=== PATIENT | female | born 1965 | race Caucasian/White ===

== ENCOUNTER 2016-10-09 12:34 | Emergency (ER) | payer BC, OTHER ==
[~2016-10-09] VITALS: Ht 170.2 cm; Wt 158.8 kg
[2016-10-09 12:52] VITALS: BP 156/73; PULSE 86; RESP 20; TEMP 98.9; O2SAT 100
--- NOTE | 2016-10-09 12:57 | NUR ---
Pt placed to ER waiting room in stable condition. Urine specimen cup provided.
[2016-10-09] MEDS ORDERED: ONDANSETRON HCL 4 MG/2 ML VIAL IVP ONE (13:00)
[2016-10-09] MEDS ORDERED: NACL 0.9% 1,000 ML IV ONE (13:00)
[2016-10-09] MEDS ORDERED: KETOROLAC TROMETHAMINE 30 MG VIAL IVP ONE (13:00)
[2016-10-09] MEDS ORDERED: PROCHLORPERAZINE EDISYLATE 10 MG/2 ML VIAL IVP ONE (13:00)
[2016-10-09 13:24] LABS: BASOPHILS # (AUTO) 0.1 K/uL (0.0-0.2); BASOPHILS % (AUTO) 0.4 % (0.0-2.0); EOSINOPHILS # (AUTO) 0.3 K/uL (0.0-0.4); EOSINOPHILS % (AUTO) 2.2 % (0.0-4.0); HEMATOCRIT 35.4 % (36-48); LYMPHOCYTES # (AUTO) 2.2 K/uL (1.0-5.5); LYMPHOCYTES % (AUTO) 17.2 % (20.5-51.5); MEAN CORPUSCULAR HEMOGLOBIN 27 pg (27-31); MEAN CORPUSCULAR HGB CONC 34 % (32-36); MEAN CORPUSCULAR VOLUME 79 fL (79.0-98.0); MONOCYTES # (AUTO) 0.7 K/uL (0.0-1.0); MONOCYTES % (AUTO) 5.3 % (1.7-9.3); NEUTROPHILS # (AUTO) 9.5 K/uL (1.8-7.7); NEUTROPHILS % (AUTO) 74.9 % (40.0-70.0); PLATELET COUNT (AUTO) 228 K/uL (130-430); RED CELL DISTRIBUTION WIDTH 15.3 % (9.0-15.0); WHITE BLOOD COUNT (AUTO) 12.8 K/uL (4.8-10.8)
[2016-10-09 13:33] LABS: BILIRUBIN,URINE NEGATIVE (NEGATIVE); BLOOD, URINE 3+ (NEGATIVE); CLARITY/URINE CLEAR (CLEAR); COLOR,URINE YELLOW (YELLOW); GLUCOSE,URINE NEGATIVE (NEGATIVE); KETONES,URINE NEGATIVE (NEGATIVE); LEUKOCYTE ESTERASE ,URINE NEGATIVE (NEGATIVE); NITRITE, URINE NEGATIVE (NEGATIVE); PH,URINE 5.5 (5.0-8.0); PROTEIN URINE NEGATIVE (NEGATIVE); UROBILINOGEN,URINE 0.2 (0.2-1.0)
[2016-10-09 13:35] LABS: CREATININE 0.81 mg/dL (0.55-1.30); POTASSIUM 4.4 mmol/L (3.5-5.1)
[2016-10-09 13:38] LABS: PROTHROMBIN TIME 10.8 SECS (9.5-12.5)
[2016-10-09 13:39] LABS: ALBUMIN 3.4 g/dL (3.4-4.8); TOTAL BILIRUBIN 0.3 mg/dL (0.0-1.0); TOTAL PROTEIN, SERUM 8.6 g/dL (6.4-8.3)
[2016-10-09 13:57] LABS: BACTERIA,URINE FEW /HPF (None Seen); MUCUS,URINE None Seen /LPF (None Seen); RBC,URINE 20-50 /HPF (0-3); WBC,URINE 0-3 /HPF (0-3)
--- NOTE | 2016-10-09 14:15 | NUR ---
Dr. Adamson assessing pt in triage room.
[2016-10-09 14:22] VITALS: BP 144/82; PULSE 88; RESP 20; TEMP 98.7; O2SAT 98
--- NOTE | 2016-10-09 14:22 | NUR ---
Patient given written and verbal discharge instructions and verbalizes understanding. ER MD discussed with patient the results and treatment provided. Patient in stable condition. ID arm band removed. Rx of Zofran, Ibuprofen, and Macrobid given. Patient educated on pain management and to follow up with PMD. Pain Scale 2/10. Opportunity for questions provided and answered.
--- NOTE | 2016-10-09 14:25 | NUR ---
Tavares de jesus in ED - 10/09/[address] at [address] Adamson assessing pt in triage room.
== END 2016-10-09 14:22 | disposition home or self-care (01) ==
LOC: SED 12:34
DX: N39.0 Urinary tract infection, site not specified (principal); R31.9 Hematuria, unspecified; K52.9 Noninfective gastroenteritis and colitis, unspecified; E11.9 Type 2 diabetes mellitus without complications; I10 Essential (primary) hypertension
CPT/HCPCS: 36415; 80053; 81000-TC; 82150-TC; 83690-TC; 85025; 85610-TC; 85730-TC; 99285

== ENCOUNTER 2016-11-29 19:59 | Emergency (ER) | payer OTHER ==
[~2016-11-29] VITALS: Ht 170.2 cm; Wt 160.1 kg
[2016-11-29 19:59] VITALS: BP_SYST 161
[2016-11-29 21:13] LABS: BASOPHILS # (AUTO) 0.1 K/uL (0.0-0.2); BASOPHILS % (AUTO) 0.5 % (0.0-2.0); EOSINOPHILS # (AUTO) 0.2 K/uL (0.0-0.4); HEMATOCRIT 35.6 % (36-48); HEMOGLOBIN 11.7 g/dL (12.0-16.0); LYMPHOCYTES # (AUTO) 2.3 K/uL (1.0-5.5); LYMPHOCYTES % (AUTO) 19.7 % (20.5-51.5); MEAN CORPUSCULAR HEMOGLOBIN 26 pg (27-31); MEAN CORPUSCULAR HGB CONC 33 % (32-36); MEAN CORPUSCULAR VOLUME 80 fL (79.0-98.0); MONOCYTES # (AUTO) 0.5 K/uL (0.0-1.0); NEUTROPHILS # (AUTO) 8.6 K/uL (1.8-7.7); NEUTROPHILS % (AUTO) 73.8 % (40.0-70.0); PLATELET COUNT (AUTO) 234 K/uL (130-430); RED BLOOD CELL COUNT(AUTO) 4.45 MIL/uL (4.2-6.2); RED CELL DISTRIBUTION WIDTH 14.6 % (9.0-15.0); WHITE BLOOD COUNT (AUTO) 11.7 K/uL (4.8-10.8)
[2016-11-29 21:28] LABS: CREATININE 0.88 mg/dL (0.55-1.30); POTASSIUM 4.1 mmol/L (3.5-5.1)
[2016-11-29 21:33] LABS: ALBUMIN 3.5 g/dL (3.4-4.8); TOTAL BILIRUBIN 0.2 mg/dL (0.0-1.0); TOTAL PROTEIN, SERUM 8.4 g/dL (6.4-8.3)
[2016-11-29] MEDS ORDERED: KETOROLAC TROMETHAMINE 60 MG/2 ML VIAL IM ONE (21:45)
[2016-11-29] MEDS ORDERED: ONDANSETRON 4 MG ODT TAB PO ONE (21:45)
[2016-11-29 22:13] LABS: BILIRUBIN,URINE NEGATIVE (NEGATIVE); BLOOD, URINE 1+ (NEGATIVE); CLARITY/URINE SL HAZY (CLEAR); COLOR,URINE YELLOW (YELLOW); GLUCOSE,URINE NEGATIVE (NEGATIVE); KETONES,URINE NEGATIVE (NEGATIVE); LEUKOCYTE ESTERASE ,URINE NEGATIVE (NEGATIVE); NITRITE, URINE NEGATIVE (NEGATIVE); PROTEIN URINE NEGATIVE (NEGATIVE); UROBILINOGEN,URINE 0.2 (0.2-1.0)
[2016-11-29 22:44] VITALS: BP_SYST 142
[2016-11-29 23:47] LABS: BACTERIA,URINE FEW /HPF (None Seen); MUCUS,URINE 1+ /LPF (None Seen)
== END 2016-11-29 22:44 | disposition home or self-care (01) ==
LOC: SED 19:59
DX: R10.9 Unspecified abdominal pain (principal); E11.9 Type 2 diabetes mellitus without complications; I10 Essential (primary) hypertension
CPT/HCPCS: 36415; 74176; 76705; 80053; 81000; 82150; 83605; 83690; 85025; 87040; 87086; 96372; 99285; J1885; Q0162

== ENCOUNTER 2017-03-05 01:46 | Emergency (ER) | payer OTHER ==
[~2017-03-05] VITALS: Ht 170.2 cm; Wt 159.7 kg
[2017-03-05 02:30] VITALS: BP_SYST 183
[2017-03-05] MEDS ORDERED: MORPHINE SULFATE 10 MG/ML VIAL IM ONE (02:45)
[2017-03-05 04:15] VITALS: BP_SYST 144
== END 2017-03-05 04:15 | disposition home or self-care (01) ==
LOC: SED 01:46
DX: M54.41 Lumbago with sciatica, right side (principal); E11.9 Type 2 diabetes mellitus without complications; I10 Essential (primary) hypertension
CPT/HCPCS: 96372; 99283; J2270

== ENCOUNTER 2017-03-07 05:55 | Emergency (ER) | payer OTHER ==
[~2017-03-07] VITALS: Ht 170.2 cm; Wt 159.7 kg
[2017-03-07 05:55] VITALS: BP_SYST 160
--- NOTE | 2017-03-07 06:00 | NUR ---
Patient to ER bed 6 to gown for evaluation. Side rails up. Report given to MAXWELL GARNER.
--- NOTE | 2017-03-07 06:27 | NUR ---
Patient AOx4, ambulatory, presents to ED with complaint of right sciaic nreve pain 8. Patient states the pain has been off and on for the past few weeks but today the pain is worse. Patient states she is currently taking Soma but is ineffective. No acute distress noted. Will continue to monitor.
--- NOTE | 2017-03-07 06:32 | NUR ---
Osea at bedside examining patient.
--- NOTE | 2017-03-07 06:57 | NUR ---
Patient to radiology via .
--- NOTE | 2017-03-07 07:11 | NUR ---
Care endorsed to PATSY Hernandez.
--- NOTE | 2017-03-07 07:29 | NUR ---
Assumed care received report from Nurse at bedside. Patient appears asleep, positive chest rise and fall noted. No signs of distress, vss noted.
[2017-03-07] MEDS ORDERED: HYDROcodone/ACETAMIN 5-325 MG TAB (NORCO/ VICODIN) PO ONE (08:30)
[2017-03-07 08:53] VITALS: BP_SYST 158
--- NOTE | 2017-03-07 08:55 | NUR ---
Patient given written and verbal discharge instructions and verbalizes understanding. ER MD discussed with patient the results and treatment provided. Patient in stable condition. ID arm band removed. IV catheter removed intact and dressing applied, no active bleeding. Rx of [place] given. Patient educated on pain management and to follow up with PMD. Pain Scale 0/10. Opportunity for questions provided and answered.
== END 2017-03-07 08:53 | disposition home or self-care (01) ==
LOC: SED 05:55
DX: M25.551 Pain in right hip (principal); E11.9 Type 2 diabetes mellitus without complications; I10 Essential (primary) hypertension; Z98.890 Other specified postprocedural states
CPT/HCPCS: 72170-TC; 73502; 99284

== ENCOUNTER 2017-03-08 06:00 | Day surgery (SDC) | payer OTHER ==
[~2017-03-08] VITALS: Ht 170.2 cm; Wt 159.7 kg
[2017-03-08] MEDS ORDERED: LR 1,000 ML IV SCH (08:19)
[2017-03-08] MEDS ORDERED: METOCLOPRAMIDE HCL 10 MG/2 ML VIAL IVP PRN (08:30)
[2017-03-08] MEDS ORDERED: MORPHINE 2 MG/ML INJ. SYRINGE IVP PRN ×3 (08:30)
[2017-03-08] MEDS ORDERED: ONDANSETRON HCL 4 MG/2 ML VIAL IVP PRN (08:45)
[2017-03-08] MEDS ORDERED: OXYCODONE/ACETAMINOPHEN 5-325 TABLET PO PRN ×2 (08:45)
[2017-03-08] MEDS ORDERED: PROMETHAZINE HCL 25 MG/ML AMP IM PRN ×2 (08:45)
[2017-03-08 09:59] VITALS: BP_SYST 140
== END 2017-03-08 09:55 | disposition home or self-care (01) ==
LOC: SMU 06:00 → SDS 06:00
PROVIDERS: ATTEND Obstetrics & Gynecology
DX: N84.0 Polyp of corpus uteri (principal); E66.01 Morbid (severe) obesity due to excess calories; Z68.43 Body mass index [BMI] 50.0-59.9, adult; I10 Essential (primary) hypertension; M19.90 Unspecified osteoarthritis, unspecified site; E11.40 Type 2 diabetes mellitus with diabetic neuropathy, unspecified; Z79.84 Long term (current) use of oral hypoglycemic drugs; Z79.899 Other long term (current) drug therapy; Z82.49 Family history of ischemic heart disease and other diseases of the circulatory system; Z83.3 Family history of diabetes mellitus
CPT/HCPCS: 36415 ×2; 58558; 82947; 86886; 86900; 86901; 88305; J7120

== ENCOUNTER 2017-11-29 19:20 | Emergency (ER) | payer OTHER ==
[~2017-11-29] VITALS: Ht 170.2 cm; Wt 151.5 kg
[2017-11-29 19:34] VITALS: BP_SYST 146
[2017-11-29] MEDS ORDERED: NACL 0.9% 1,000 ML IV ONE (19:54)
[2017-11-29] MEDS ORDERED: MORPHINE 4 MG/ML INJ. SYRINGE IVP ONE (20:00)
[2017-11-29] MEDS ORDERED: ONDANSETRON HCL 4 MG/2 ML VIAL IVP ONE (20:00)
[2017-11-29 20:32] LABS: EOSINOPHILS # (AUTO) 0.2 K/uL (0.0-0.4); EOSINOPHILS % (AUTO) 1.8 % (0.0-4.0); HEMATOCRIT 37.7 % (36-48); HEMOGLOBIN 12.2 g/dL (12.0-16.0); MEAN CORPUSCULAR HEMOGLOBIN 25 pg (27-31); MEAN CORPUSCULAR HGB CONC 32 % (32-36); MEAN CORPUSCULAR VOLUME 79 fL (79.0-98.0); MONOCYTES # (AUTO) 0.8 K/uL (0.0-1.0); MONOCYTES % (AUTO) 6.4 % (1.7-9.3); PLATELET COUNT (AUTO) 293 K/uL (130-430); RED BLOOD CELL COUNT(AUTO) 4.79 MIL/uL (4.2-6.2); RED CELL DISTRIBUTION WIDTH 16.3 % (9.0-15.0); WHITE BLOOD COUNT (AUTO) 12.9 K/uL (4.8-10.8)
[2017-11-29 20:34] LABS: NEUTROPHILS # (AUTO) 8.9 K/uL (1.8-7.7); NEUTROPHILS % (AUTO) 68.8 % (40.0-70.0)
[2017-11-29 20:42] LABS: CALCIUM 9.6 mg/dL (8.4-11.0); CREATININE 0.65 mg/dL (0.55-1.30)
[2017-11-29 20:48] LABS: ALBUMIN 3.8 g/dL (3.4-4.8); TOTAL BILIRUBIN 0.2 mg/dL (0.0-1.0)
[2017-11-29 21:01] LABS: INR 1.1 (0.8-1.2); PROTHROMBIN TIME 10.7 SECS (9.5-12.5)
[2017-11-29 21:01] LABS: BILIRUBIN,URINE NEGATIVE (NEGATIVE); BLOOD, URINE NEGATIVE (NEGATIVE); CLARITY/URINE CLEAR (CLEAR); COLOR,URINE YELLOW (YELLOW); GLUCOSE,URINE NEGATIVE (NEGATIVE); KETONES,URINE NEGATIVE (NEGATIVE); LEUKOCYTE ESTERASE ,URINE NEGATIVE (NEGATIVE); NITRITE, URINE NEGATIVE (NEGATIVE); PROTEIN URINE NEGATIVE (NEGATIVE); UROBILINOGEN,URINE 0.2 (0.2-1.0)
[2017-11-29 21:45] VITALS: BP_SYST 124
== END 2017-11-29 21:45 | disposition home or self-care (01) ==
LOC: SED 19:20
DX: E11.649 Type 2 diabetes mellitus with hypoglycemia without coma (principal); I10 Essential (primary) hypertension
CPT/HCPCS: 36415; 71045; 80053; 81003; 81025; 82150; 82550; 83690; 84484; 85025; 85610; 93005; 96360; 99285; J7030; J2270; J2405

== ENCOUNTER 2018-11-08 19:34 | Emergency (ER) | payer OTHER ==
[~2018-11-08] VITALS: Ht 170.2 cm; Wt 93.0 kg
[2018-11-08 19:36] VITALS: BP_SYST 154
[2018-11-08 20:10] LABS: BASOPHILS % (AUTO) 0.6 % (0.0-2.0); EOSINOPHILS # (AUTO) 0.1 K/uL (0.0-0.4); EOSINOPHILS % (AUTO) 1.2 % (0.0-4.0); HEMATOCRIT 38.1 % (36-48); HEMOGLOBIN 12.8 g/dL (12.0-16.0); LYMPHOCYTES # (AUTO) 3.3 K/uL (1.0-5.5); LYMPHOCYTES % (AUTO) 42.4 % (20.5-51.5); MEAN CORPUSCULAR HEMOGLOBIN 29 pg (27-31); MEAN CORPUSCULAR HGB CONC 34 % (32-36); MEAN CORPUSCULAR VOLUME 85 fL (79.0-98.0); MONOCYTES # (AUTO) 0.6 K/uL (0.0-1.0); MONOCYTES % (AUTO) 7.3 % (1.7-9.3); NEUTROPHILS # (AUTO) 3.7 K/uL (1.8-7.7); NEUTROPHILS % (AUTO) 48.5 % (40.0-70.0); PLATELET COUNT (AUTO) 187 K/uL (130-430); RED BLOOD CELL COUNT(AUTO) 4.48 MIL/uL (4.2-6.2); RED CELL DISTRIBUTION WIDTH 16.3 % (9.0-15.0); WHITE BLOOD COUNT (AUTO) 7.7 K/uL (4.8-10.8)
[2018-11-08 20:34] LABS: CREATININE 0.77 mg/dL (0.55-1.30); POTASSIUM 3.8 mmol/L (3.5-5.1)
[2018-11-08 20:39] LABS: ALBUMIN 3.8 g/dL (3.4-4.8); TOTAL BILIRUBIN 0.4 mg/dL (0.0-1.0)
[2018-11-08] MEDS ORDERED: NACL 0.9% 1,000 ML IV ONE (21:50)
[2018-11-08] MEDS ORDERED: MORPHINE 4 MG/ML INJ. SYRINGE IVP ONE (22:00)
[2018-11-08] MEDS ORDERED: DIPHENHYDRAMINE INJ 50 MG/ML VIAL IVP ONE (22:00)
[2018-11-08 22:50] LABS: BILIRUBIN,URINE NEGATIVE (NEGATIVE); BLOOD, URINE NEGATIVE (NEGATIVE); CLARITY/URINE CLEAR (CLEAR); COLOR,URINE YELLOW (YELLOW); GLUCOSE,URINE NEGATIVE (NEGATIVE); KETONES,URINE NEGATIVE (NEGATIVE); LEUKOCYTE ESTERASE ,URINE 1+ (NEGATIVE); NITRITE, URINE NEGATIVE (NEGATIVE); PROTEIN URINE NEGATIVE (NEGATIVE); UROBILINOGEN,URINE 0.2 (0.2-1.0)
[2018-11-08 22:57] LABS: RBC,URINE 0-3 /HPF (0-3)
[2018-11-08 22:58] LABS: BACTERIA,URINE FEW /HPF (None Seen); YEAST,URINE Moderate /HPF (None Seen)
[2018-11-09 00:10] VITALS: BP_SYST 154
== END 2018-11-09 00:10 | disposition home or self-care (01) ==
LOC: SED 19:34
DX: K42.0 Umbilical hernia with obstruction, without gangrene (principal); E11.9 Type 2 diabetes mellitus without complications; I10 Essential (primary) hypertension; Z98.84 Bariatric surgery status
CPT/HCPCS: 36415; 80053; 81000; 85025; 96374; 96375; 99283; J1200; J2270; J7030

== ENCOUNTER 2020-05-27 20:23 | Emergency (ER) | payer OTHER, SELFPAY ==
[~2020-05-27] VITALS: Ht 170.2 cm; Wt 83.9 kg
[2020-05-27 20:35] VITALS: BP_SYST 146
[2020-05-27] MEDS ORDERED: IPRATROPIUM BROM 0.5 MG/2.5 ML VIAL.NEB (ATROVENT) INH ONE (21:15)
[2020-05-27] MEDS ORDERED: LevALBUTEROL HCL 1.25 MG/0.5 ML *CONC.* VIAL.NEB (XOPENEX CONC.) INH ONE (21:15)
[2020-05-27 22:12] LABS: BILIRUBIN,URINE NEGATIVE (NEGATIVE); BLOOD, URINE NEGATIVE (NEGATIVE); CLARITY/URINE CLEAR (CLEAR); COLOR,URINE YELLOW (YELLOW); GLUCOSE,URINE NEGATIVE (NEGATIVE); KETONES,URINE NEGATIVE (NEGATIVE); LEUKOCYTE ESTERASE ,URINE TRACE (NEGATIVE); NITRITE, URINE NEGATIVE (NEGATIVE); PH,URINE 6.5 (5.0-8.0); PROTEIN URINE NEGATIVE (NEGATIVE); UROBILINOGEN,URINE 0.2 (0.2-1.0)
[2020-05-27 22:16] LABS: BACTERIA,URINE None Seen /HPF (None Seen); CALCIUM OXALATE CRYSTALS,UR None Seen /HPF (None Seen); CALCIUM PHOSPHATE CRYSTALS,UR None Seen /HPF (None Seen); RBC,URINE NONE SEEN /HPF (0-3); TRICHOMONAS,URINE None Seen /HPF (None Seen); YEAST,URINE None Seen /HPF (None Seen)
[2020-05-27 23:00] VITALS: BP_SYST 146
[2020-05-27] MEDS ORDERED: predniSONE 20 MG TABLET PO ONE (23:00)
== END 2020-05-27 23:00 | disposition home or self-care (01) ==
LOC: SED 20:23
DX: R07.89 Other chest pain (principal); R06.00 Dyspnea, unspecified; J98.01 Acute bronchospasm; I10 Essential (primary) hypertension; E11.9 Type 2 diabetes mellitus without complications; Z20.828 Contact with and (suspected) exposure to other viral communicable diseases
CPT/HCPCS: 36415; 71045; 81000; 87426; 94640; 99284; J7512; J7612

== ENCOUNTER 2020-06-06 19:41 | Emergency (ER) | payer OTHER, SELFPAY ==
[~2020-06-06] VITALS: Ht 170.2 cm; Wt 83.9 kg
[2020-06-06 19:48] VITALS: BP_SYST 155
[2020-06-06] MEDS ORDERED: MAG HYDROX/AL HYDROX/SIMETH 30 ML, DICYCLOMINE HCL 20 MG, LIDOCAINE VISCOUS 2% 15ML (PO... PO ONE ×3 (20:00)
[2020-06-06 20:46] VITALS: BP_SYST 132
== END 2020-06-06 20:46 | disposition home or self-care (01) ==
LOC: SED 19:41
DX: J39.2 Other diseases of pharynx (principal); I10 Essential (primary) hypertension; E11.9 Type 2 diabetes mellitus without complications
CPT/HCPCS: 99283; J2001

== ENCOUNTER 2021-02-01 19:26 | Emergency (ER) | payer OTHER ==
[~2021-02-01] VITALS: Ht 170.2 cm; Wt 81.2 kg
--- NOTE | 2021-02-01 19:42 | NUR ---
Patient to ER bed 3 to gown for evaluation. Side rails up.
[2021-02-01 19:44] VITALS: BP_SYST 148
--- NOTE | 2021-02-01 19:44 | NUR ---
Pt came into ER with complaint of dull epigastric pressure Xtoday. Pt reports she has been delaing with this on and off for a week and is usually relieved with burping or rest but today it has not gone away. Pt denies any pain. Pt AAOX4 speaking full sentences resting in gurney no distress noted. BP elevated 148/80.
--- NOTE | 2021-02-01 19:48 | NUR ---
LUCINA Campbell at bedside examining patient.
[2021-02-01] MEDS ORDERED: MAG HYDROX/AL HYDROX/SIMETH 30 ML, LIDOCAINE VISCOUS 2% 15ML (PO) 15 ML, DICYCLOMINE HC... PO ONE ×3 (20:00)
--- NOTE | 2021-02-01 20:00 | NUR ---
X-ray at bedside.
--- NOTE | 2021-02-01 20:05 | NUR ---
Lab at bedside.
[2021-02-01] MEDS ORDERED: LIDOCAINE VISCOUS 2%, 15 ML UDC ONE (20:13)
[2021-02-01 20:31] LABS: BASOPHILS # (AUTO) 0.1 K/uL (0.0-0.2); BASOPHILS % (AUTO) 1.3 % (0.0-2.0); EOSINOPHILS # (AUTO) 0.1 K/uL (0.0-0.4); EOSINOPHILS % (AUTO) 2.2 % (0.0-4.0); HEMATOCRIT 37.8 % (36-48); HEMOGLOBIN 12.4 g/dL (12.0-16.0); LYMPHOCYTES # (AUTO) 1.8 K/uL (1.0-5.5); LYMPHOCYTES % (AUTO) 26.3 % (20.5-51.5); MEAN CORPUSCULAR HEMOGLOBIN 29 pg (27-31); MEAN CORPUSCULAR HGB CONC 33 % (32-36); MEAN CORPUSCULAR VOLUME 88 fL (79.0-98.0); MONOCYTES # (AUTO) 0.6 K/uL (0.0-1.0); MONOCYTES % (AUTO) 8.6 % (1.7-9.3); NEUTROPHILS # (AUTO) 4.1 K/uL (1.8-7.7); NEUTROPHILS % (AUTO) 61.6 % (40.0-70.0); PLATELET COUNT (AUTO) 167 K/uL (130-430); RED BLOOD CELL COUNT(AUTO) 4.31 MIL/uL (4.2-6.2); RED CELL DISTRIBUTION WIDTH 13.6 % (9.0-15.0); WHITE BLOOD COUNT (AUTO) 6.7 K/uL (4.8-10.8)
[2021-02-01 20:33] LABS: CALCIUM 9.2 mg/dL (8.4-11.0); CREATININE 0.62 mg/dL (0.55-1.30); POTASSIUM 4.2 mmol/L (3.5-5.1)
[2021-02-01 20:39] LABS: ALBUMIN 3.8 g/dL (3.4-4.8); TOTAL BILIRUBIN 0.2 mg/dL (0.0-1.0)
[2021-02-01] MEDS ORDERED: PRO40 PO (21:21)
[2021-02-01] MEDS ORDERED: ANT30 PO (21:28)
[2021-02-01] MEDS ORDERED: DICY10CA13 PO (21:28)
[2021-02-01] MEDS ORDERED: PANTOPRAZOLE SODIUM 40 MG TAB PO ONE (21:30)
[2021-02-01 21:44] VITALS: BP_SYST 148
--- NOTE | 2021-02-01 21:45 | NUR ---
Patient given written and verbal discharge instructions and verbalizes understanding. ER MD discussed with patient the results and treatment provided. Patient in stable condition. ID arm band removed. Rx of [place], dyclomine, protonix given. Patient educated on pain management and to follow up with PMD. Pain Scale 0/10. Opportunity for questions provided and answered. Medication side effect fact sheet provided.
[2021-02-01] MEDS ORDERED: PANTOPRAZOLE SODIUM 40 MG TAB ONE ×2 (21:46)
== END 2021-02-01 21:45 | disposition home or self-care (01) ==
LOC: SED 19:26
DX: K29.00 Acute gastritis without bleeding (principal); I10 Essential (primary) hypertension; E11.9 Type 2 diabetes mellitus without complications; Z79.899 Other long term (current) drug therapy
CPT/HCPCS: 36415; 71045; 80053; 83880; 84484; 85025; 93005; 99285; J2001

== ENCOUNTER 2021-02-07 23:27 | Emergency (ER) | payer OTHER ==
[~2021-02-07] VITALS: Ht 170.2 cm; Wt 81.6 kg
[2021-02-07 23:27] VITALS: BP_SYST 167
[~2021-02-07 23:27] MED LIST: ANT30 PO; DICY10CA13 PO; PRO40 PO
--- NOTE | 2021-02-07 23:27 | NUR ---
Patient to ER bed 4 to gown for evaluation. Side rails up. Report given to November.
--- NOTE | 2021-02-07 23:33 | NUR ---
EKG performed at by Greg. Physician given copy of EKG for review.
--- NOTE | 2021-02-08 00:15 | NUR ---
Pt laying in gurney, a/o. Pt states she is having chest pain that feels like pressure to the left side of her chest, pt states it does not radiate elsewhere. Pt denies any other symptoms or discomfort. VS WNL and afebrile.
--- NOTE | 2021-02-08 00:17 | NUR ---
Dr. Sampson at bedside to assess.
--- NOTE | 2021-02-08 00:20 | NUR ---
# 20 gauge angiocath placed to left hand. Use of asceptic technique. Opsite placed over site. Blood return noted. Blood for lab drawn from site. Flushed with 10 cc of normal saline. No evidence of infiltration noted. Patient tolerated well.
[2021-02-08] MEDS ORDERED: ASPIRIN 325 MG TABLET PO ONE (00:30)
[2021-02-08] MEDS ORDERED: NITROGLYCERIN 0.4 MG TAB.SUBL SL ONE (00:30)
[2021-02-08 00:32] LABS: BASOPHILS # (AUTO) 0.1 K/uL (0.0-0.2); BASOPHILS % (AUTO) 0.9 % (0.0-2.0); EOSINOPHILS # (AUTO) 0.2 K/uL (0.0-0.4); EOSINOPHILS % (AUTO) 2.9 % (0.0-4.0); HEMATOCRIT 34.8 % (36-48); HEMOGLOBIN 11.9 g/dL (12.0-16.0); LYMPHOCYTES # (AUTO) 2.6 K/uL (1.0-5.5); LYMPHOCYTES % (AUTO) 38.4 % (20.5-51.5); MEAN CORPUSCULAR HEMOGLOBIN 30 pg (27-31); MEAN CORPUSCULAR HGB CONC 34 % (32-36); MEAN CORPUSCULAR VOLUME 87 fL (79.0-98.0); MONOCYTES # (AUTO) 0.4 K/uL (0.0-1.0); MONOCYTES % (AUTO) 6.7 % (1.7-9.3); NEUTROPHILS # (AUTO) 3.4 K/uL (1.8-7.7); NEUTROPHILS % (AUTO) 51.1 % (40.0-70.0); PLATELET COUNT (AUTO) 155 K/uL (130-430); RED BLOOD CELL COUNT(AUTO) 4.01 MIL/uL (4.2-6.2); RED CELL DISTRIBUTION WIDTH 13.9 % (9.0-15.0); WHITE BLOOD COUNT (AUTO) 6.7 K/uL (4.8-10.8)
[2021-02-08 00:37] LABS: CALCIUM 9.2 mg/dL (8.4-11.0); CREATININE 0.64 mg/dL (0.55-1.30)
[2021-02-08] MEDS ORDERED: ASPIRIN 325 MG TABLET ONE (00:38)
[2021-02-08 00:40] LABS: INR 0.9 (0.8-1.2); PROTHROMBIN TIME 10.1 SECS (9.5-12.5)
[2021-02-08 00:44] LABS: ALBUMIN 3.8 g/dL (3.4-4.8); TOTAL BILIRUBIN 0.1 mg/dL (0.0-1.0)
--- NOTE | 2021-02-08 00:45 | NUR ---
Medicated w/ nitrostat 0.4mg sl and ASA 325mg po per MD orders. Will cont to monitor and observer for any adverse reaction. Bed to low position sr up. continue to monitor.
--- NOTE | 2021-02-08 01:35 | NUR ---
Pt laying in gurney with eyes closed. No symptoms of distress noted.
--- NOTE | 2021-02-08 02:50 | NUR ---
Pt laying in gurney, pt sleeping. No s/s of distress noted. Safety precautions in place.
--- NOTE | 2021-02-08 03:57 | NUR ---
Dr. Sampson at the bedside discusing plan of care.
--- NOTE | 2021-02-08 04:33 | NUR ---
Pt laying in bed sleeping, no s/s of distress noted. Safety precautions in place.
--- NOTE | 2021-02-08 04:50 | NUR ---
received updates and is now at the bedside with the patient.
[2021-02-08 05:26] VITALS: BP_SYST 128
--- NOTE | 2021-02-08 05:27 | NUR ---
Patient given written and verbal discharge instructions and verbalizes understanding. ER MD discussed with patient the results and treatment provided. Patient in stable condition. ID arm band removed. IV catheter removed intact and dressing applied, no active bleeding. Rx of given. Patient educated on pain management and to follow up with PMD. Pain Scale 0/10. Opportunity for questions provided and answered. Medication side effect fact sheet provided.
== END 2021-02-08 05:25 | disposition home or self-care (01) ==
LOC: SED 23:27
DX: R07.89 Other chest pain (principal); I10 Essential (primary) hypertension; E11.9 Type 2 diabetes mellitus without complications; Z79.899 Other long term (current) drug therapy
CPT/HCPCS: 36415; 71045; 80053; 82550; 83880; 84484; 85025; 85379; 85610-TC; 93005; 99285